=== PATIENT | female | born 1965 | race Caucasian/White ===

== ENCOUNTER 2023-10-07 09:38 | Emergency (ER) | payer BC ==
[~2023-10-07] VITALS: Ht 167.6 cm; Wt 91.0 kg
[2023-10-07 09:44] VITALS: O2SAT 97
[2023-10-07] MEDS ORDERED: CELE100C MT (13:04)
[2023-10-07 13:23] VITALS: BP 129/68; PULSE 89; RESP 16; TEMP 98
== END 2023-10-07 13:25 | disposition home or self-care (01) ==
LOC: ER 09:55
DX: M16.12 Unilateral primary osteoarthritis, left hip (principal)
CPT/HCPCS: 73502; 81025; 99283